=== PATIENT | female | born 1975 | race Caucasian/White ===

== ENCOUNTER 2022-03-18 08:55 | Emergency (ER) | payer OTHER, SELFPAY ==
[2022-03-18 09:07] VITALS: BP 130/63; PULSE 85; RESP 18; TEMP 36.4; O2SAT 98; BMI 26.5
--- NOTE | 2022-03-18 09:17 | CRLHL7_ITS ---
For Patients: As a result of the Century Cures Act, medical imaging exams and procedure reports are released immediately into your electronic medical record. You may view this report before your referring provider. If you have questions, please contact your health care provider. INDICATION: Pain and swelling right upper extremity following foot surgery. Comparison: None. TECHNIQUE: Duplex ultrasound evaluation venous system right upper extremity; color Doppler duplex assessment. FINDINGS: No evidence of deep venous thrombosis involving the right upper extremity deep venous system. The right internal jugular vein, the right subclavian vein, the right axillary vein and the brachial vein are patent and are compressible. Occlusive thrombosis involving the right basilic vein extending from the mid arm into the proximal forearm. Thrombosis involving the right antecubital vein. IMPRESSION: 1. Superficial thrombophlebitis involving the right basilic vein into right antecubital vein. 2. No evidence of deep venous thrombosis. Dictated by Cindy Warner MD @ 03/18/2022 11:06:34 AM (Electronically Signed)
--- NOTE | 2022-03-18 09:28 | ED_ITS ---
HPI - General Adult General Chief complaint: Extremity Pain/Injury, Upper Stated complaint: Post surgical RT Foot now pain in RT arm Time Seen by Provider: 03/18/22 09:12 Source: patient Mode of arrival: ambulatory Limitations: no limitations History of Present Illness HPI narrative: 46-year-old female coming in today complaining of arm pain. Patient states that she had foot surgery on the 06 of March and on the 14 of March started developing right-sided arm pain. The pain is progressively gotten worse over the last several days. She denies any systemic symptoms like fevers chills, nausea or vomiting. She does state that she had an IV placed in that arm. She denies any personal history of blood clots. She is not short of breath, denies palpitations, dizziness or lightheadedness. Appetite has been normal. Foot has been healing appropriately. Related Data Home Medications Medication Instructions Recorded Confirmed norgestimate 0.18 mg/0.215 mg/0.25 tab 03/18/22 mg-ethinyl estradiol 25 mcg tablet ([id number]) sertraline 50 mg tablet mg 03/18/22 Allergies Allergy/AdvReac Type Severity Reaction Status Date / Time No Known Drug Allergies Allergy Verified 03/18/22 09:11 Review of Systems Status of ROS: Reports: 10 or more systems reviewed and unremarkable except as noted in History and below Exam Narrative: Exam Narrative: Well-nourished well-developed patient in no acute distress. Alert and oriented. Answers questions appropriately. Mood and affect are appropriate. Thoughts are goal oriented and rational. No tangential or magical thinking noted. Patient speaks in full sentences without needing to catch her breath. She does not appear ill or toxic. HEENT: Normocephalic atraumatic. Pupils are equally round reactive to light. Extraocular muscles are intact. Conjunctivae are moist without any icterus noted. Cardiovascular: Heart is regular rate and rhythm. Lungs: Clear to auscultation bilaterally. Extremities: Patient has tenderness to palpation of the medial right arm from about the mid upper arm to just distal to the elbow. She has an obvious palpable cord present. There is mild swelling over the medial elbow without heat or significant erythema. Skin: Warm dry and intact. Const: Vital Signs, click to edit/add: Vital Signs - 24 hr 03/18/22 09:07 Temperature 97.6 F Pulse Rate [Right Pulse Oximeter] 85 Respiratory Rate 18 Blood Pressure [Ri t Upper Arm] 130/63 Pulse Oximetry 98 Oxygen Delivery Me thod Room Air Course Course Hospital Course: Likely, because of patient discomfort is a thrombophlebitis however given her recent surgery I did want to make sure that there was no underlying DVT as well. Therefore ultrasound of the upper extremity was ordered. Ultrasound shows thrombophlebitis of the superficial basilic vein, no evidence of DVT. Vital Signs Vital signs: Initial Vital Signs Temperature 97.6 F 03/18/22 09:07 Temperature Source Temporal Artery Scan 03/18/22 09:07 Pulse Rate 85 03/18/22 09:07 Pulse Rhythm 03/18/22 09:07 Respiratory Rate 18 03/18/22 09:07 Blood Pressure 130/63 03/18/22 09:07 Blood Pressure Mean 85 03/18/22 09:07 Blood Pressure Position Sitting 03/18/22 09:07 Pulse Oximetry 98 03/18/22 09:07 Oxygen Delivery Method 03/18/22 09:07 Vital Signs Temperature 97.6 F 03/18/22 09:07 Pulse Rate 85 03/18/22 09:07 Respiratory Rate 18 03/18/22 09:07 Blood Pressure 130/63 03/18/22 09:07 Pulse Oximetry 98 03/18/22 09:07 Oxygen Delivery Method 03/18/22 09:07 Temperature 97.6 F 03/18/22 09:07 Pulse Rate 85 03/18/22 09:07 Respiratory Rate 18 03/18/22 09:07 Blood Pressure 130/63 03/18/22 09:07 Pulse Oximetry 98 03/18/22 09:07 Oxygen Delivery Method 03/18/22 09:07 Medical Decision Making MDM Narrative Medical decision making narrative: 46-year-old female coming in today with thrombophlebitis. We discussed symptomatic treatment with NSAIDs, warm compresses. Discussed reasons for follow-up. She had no other questions. Imaging Data Venous US: Attestation: I have reviewed the pertinent imaging results. Radiologist's impression: TECHNIQUE: Duplex ultrasound evaluation venous system right upper extremity; color Doppler duplex assessment. FINDINGS: No evidence of deep venous thrombosis involving the right upper extremity deep venous system. The right internal jugular vein, the right subclavian vein, the right axillary vein and the brachial vein are patent and are compressible. Occlusive thrombosis involving the right basilic vein extending from the mid arm into the proximal forearm. Thrombosis involving the right antecubital vein. IMPRESSION: 1. Superficial thrombophlebitis involving the right basilic vein into right ant ecubital vein. 2. No evidence of deep venous thrombosis. Discharge Plan Discharge Clinical Impression: Superficial thrombophlebitis Patient Disposition: Home, Self-Care Condition: Stable Additional Instructions: Okay to use ibuprofen 600-800 mg 3 times a day with food. Use warm compress to the painful areas multiple times per day, do not apply heat directly to skin. Follow-up with your primary care provider if you have worsening pain, swelling or redness of the area. Prescriptions: No Action sertraline 50 mg tablet norgestimate-ethinyl estradiol [Yoi-[id number]] 0.18/0.215/0.25 mg-25 mcg tablet Label Comments: TAKE 1 TABLET BY MOUTH EVERY DAY Follow Up/Referrals: Annabel Meeks DO [Primary Care Provider] - Stand Alone Forms: [facility] Info Instructions
[2022-03-18 11:32] VITALS: BP 130/63; PULSE 85; RESP 18; TEMP 36.4
== END 2022-03-18 11:24 | disposition home or self-care (01) ==
PROVIDERS: Emergency Provider Family Medicine; PCP Family Medicine
DX: I82.611 Acute embolism and thrombosis of superficial veins of right upper extremity (principal)
CPT/HCPCS: 93971; 99284

== ENCOUNTER 2022-03-27 21:29 | Emergency (ER) | payer OTHER, SELFPAY ==
[2022-03-27 21:35] VITALS: BP 127/67; PULSE 76; RESP 18; TEMP 36.3
--- NOTE | 2022-03-27 22:20 | ED.GENADULT ---
HPI - General Adult General Chief complaint: Extremity Pain/Injury, Upper Stated complaint: Right arm swelling post surgery Time Seen by Provider: 03/27/22 21:31 History of Present Illness HPI narrative: This 47-year-old female comes in with pain in her right forearm. She had an IV placed for a foot surgery about 9 days ago and developed a clot in this particular vein. She had an ultrasound that showed clot in the superficial vein but none in the deep veins. She comes in today because she has pain more distally now with some erythema in the ulnar aspect of her right forearm near her wrist. She does not report any chest pain or shortness of breath. She is otherwise in good health. She did take an aspirin for about a week but is no longer doing so. Related Data Home Medications Medication Instructions Recorded Confirmed norgestimate 0.18 mg/0.215 mg/0.25 tab 03/18/22 mg-ethinyl estradiol 25 mcg tablet ([id number]) sertraline 50 mg tablet mg 03/18/22 Allergies Allergy/AdvReac Type Severity Reaction Status Date / Time No Known Drug Allergies Allergy Verified 03/27/22 21:34 Review of Systems Status of ROS: Reports: 10 or more systems reviewed and unremarkable except as noted in History and below Narrative: Constitutional: No fevers, no weight gain or loss. Eyes: No discharge. No vision changes. HENT: No congestion, no sore throat, no ear pain. Cardiovascular: No chest pain, no palpitations. Respiratory: No shortness of breath, no wheezes, no cough. Gastrointestinal: No abdominal pain, no vomiting, no diarrhea. Genitourinary: No dysuria, no hematuria. Musculoskeletal: Normal range of motion. Pain in the right forearm as described above. Skin: No rashes, no pruritis. Neurological: No dizziness, weakness, sensory change, speech change. Endo/Heme/Allergies: No bruising or bleeding. No polydipsia. Pysch: no suicidality, no anxiety, no insomnia. All other systems reviewed and are negative. [facility] Social History Smoking Status: Never smoker Do you use any of these nicotine containing products: None Second hand tobacco smoke exposure: No How often do you have a drink containing alcohol: never AUDIT-C Alcohol total score: 0 Non-prescribed substance use: denies use Exam Narrative: Exam Narrative: Constitutional: Well-developed, well-nourished, no acute distress. HEENT: Normocephalic, atraumatic. Neck: Normal range of motion. Nontender. Supple. Heart: Intact distal pulses. Lungs: No chest discomfort. No wheezes, rhonchi, or rales. Abdomen: Nontender. Back: Normal range of motion. Extremities: Normal range of motion. No injury. There is a palpable clot starting at her elbow and extending almost down to her wrist. This is a vein running along the ulnar aspect of her right forearm. She has some increased tenderness with erythema near the right wrist. Skin: Intact. No rash. Warm. An area of erythema approximately 4-5 cm in diameter on the ulnar aspect of her right distal forearm near the wrist. Neurologic: No altered sensation. No weakness. Alert and oriented. Psychiatric: No suicidality. No anxiety or depression. No insomnia. Nursing notes and vitals signs are reviewed. Const: Vital Signs, click to edit/add: Vital Signs - 24 hr 03/27/22 21:35 Temperature 97.4 F L Pulse Rate [Pulse Oximeter] 76 Respiratory Rate 18 Blood Pressure [Le ft Upper Arm] 127/67 Oxygen Delivery Me thod Room Air Course Vital Signs Vital signs: Initial Vital Signs Temperature 97.4 F L 03/27/22 21:35 Temperature Source Temporal Artery Scan 03/27/22 21:35 Pulse Rate 76 03/27/22 21:35 Pulse Rhythm 03/27/22 21:35 Respiratory Rate 18 03/27/22 21:35 Blood Pressure 127/67 03/27/22 21:35 Blood Pressure Mean 87 03/27/22 21:35 Blood Pressure Position Supine 03/27/22 21:35 Oxygen Delivery Method 03/27/22 21:35 Vital Signs Temperature 97.4 F L 03/27/22 21:35 Pulse Rate 76 03/27/22 21:35 Respiratory Rate 18 03/27/22 21:35 Blood Pressure 127/67 03/27/22 21:35 Oxygen Delivery Method 03/27/22 21:35 Temperature 97.4 F L 03/27/22 21:35 Pulse Rate 76 03/27/22 21:35 Respiratory Rate 18 03/27/22 21:35 Blood Pressure 127/67 03/27/22 21:35 Oxygen Delivery Method 03/27/22 21:35 Medical Decision Making MDM Narrative Medical decision making narrative: This patient has a clot in a superficial vein because of an IV placement causing a vascular injury. I did use bedside ultrasound to examine her right upper CT extremity. There is evidence of clot with a vein that is not compressible extending from her elbow joint almost to her wrist. The upper arm does not have any evidence of clot. This is clearly a superficial clot and not involving a deep vein. There is no sign of abscess. There is possibility of infection with erythema near her wrist. I did provide a prescription for Keflex. I recommended that she take an aspirin daily. Discharge Plan Discharge Clinical Impression: Superficial thrombophlebitis Patient Disposition: Home, Self-Care Condition: Stable Additional Instructions: Take medication as prescribed. Follow up with MD for recheck. Return if worsening. Prescriptions: No Action sertraline 50 mg tablet norgestimate-ethinyl estradiol [[id number]] 0.18/0.215/0.25 mg-25 mcg tablet Label Comments: TAKE 1 TABLET BY MOUTH EVERY DAY Follow Up/Referrals: Annabel Meeks DO [Primary Care Provider] - Stand Alone Forms: [facility] Info Instructions
[2022-03-27 22:38] VITALS: BP 113/50; PULSE 69
== END 2022-03-27 22:39 | disposition home or self-care (01) ==
LOC: ED 22:31
PROVIDERS: Emergency Provider Emergency Medicine Emergency Medical Services; PCP Family Medicine
DX: T81.72XA Complication of vein following a procedure, not elsewhere classified, initial encounter (principal); I80.8 Phlebitis and thrombophlebitis of other sites
CPT/HCPCS: 99283; 99284

== ENCOUNTER 2022-07-26 08:45 | Outpatient (RCR) | payer OTHER, SELFPAY | END 2022-11-23 23:59 | disposition home or self-care (01) | PROVIDERS: PCP Family Medicine; Visit Provider Podiatrist | DX: Z98.890 Other specified postprocedural states (principal); Z51.89 Encounter for other specified aftercare | CPT/HCPCS: 97110; 97140; 97162 ==

== ENCOUNTER 2024-06-28 18:19 | Emergency (ER) | payer BC, SELFPAY ==
--- OUTSIDE RECORDS SUMMARY | 2024-06-28 18:22 | XMS_ITS | Clinical Summary ---
Author Organization [facility] Address [address] [place] [id number] Care Team Providers Care Stopboard Assembler Name Role Phone Annabel Meeks DO Primary Care Provider Allergies Active Allergy Reactions Criticality Noted Date Comments Adhesive Tape-Silicones Rash,Erythema 8 Medications cetirizine (ZYRTEC) 10 mg tablet Take 1 tablet by mouth once daily. 0 8 Active fluticasone (50 mcg per actuation) nasal solution (FLONASE)Indicati ons:Seasonal allergic rhinitis due to pollen Inhale 2 Sprays into both nostrils once daily. 3 Bottle 5 8 Active durable medical equipment (DME)Indications: Bunion of right foot,Follow-up examination after orthopedic surgery 01ES-M ihsan Gutiérrez, Medium 1 Each 1 Active durable medical equipment (DME)Indications: S/P foot surgery, right PLANTAR FASCIITIS NIGHT SPLINT, MEDIUM, REF: [phone] 1 Each 3 Active durable medical equipment (DME)Indications: S/P foot surgery, right SQUARED TOE POST OP SHOE, MEDIUM, REF: [phone] 1 Each 3 Active norethin kimo-eth estrad-fe, 1.5-30 mg-mcg, (LOESTRIN FE 1.5/30) 1.5 mg-30 mcg (21)/75 mg (7) tabletIndications :Uses contraception Take 1 Tablet by mouth once daily. 90 Tablet 3 5 Active Phentermine HCl 30 mg capsuleIndication s:Obesity (BMI 30-39.9) Take 1 Capsule (30 mg) by mouth once daily before a meal. 30 Capsule 5 Active sertraline 50 mg tabletIndications :Anxiety and depression Take 1 Tablet (50 mg) by mouth once daily in the morning. 90 Tablet 2 5 Active sertraline (ZOLOFT) 50 mg tabletIndications :Anxiety and depression Take 1 Tablet (50 mg) by mouth once daily in the morning. 90 Tablet 3 5 025 Discontin ued(*Avai lability/ Formulary change/Co st of medicatio n) phentermine (IONAMIN) 15 mg capsuleIndication s:Weight gain,Obesity (BMI 30-39.9) Take 1 Capsule (15 mg) by mouth once daily before a meal. 15 Capsule 5 025 Discontin ued(*Med complete/ Regimen complete/ Level of care change) Phentermine HCl 30 mg capsuleIndication s:Obesity (BMI 30-39.9) Take 1 Capsule (30 mg) by mouth once daily before a meal. 30 Capsule 5 025 Discontin ued(Reord er (E-cancel not sent)) Active Problems Problem Noted Date Diagnosed Date Basal cell carcinoma (BCC) in situ of skin 05/09 Overview (05/09/2017): biopsy 05/04/17 positive. Other biopsy outside clinic. Notes in chart. Uses contraception 11/28/2016 Hammertoe of right foot Metatarsalgia, right foot Valgus deformity of great toe, right Gastrocnemius equinus, right Encounters Date Type Department Care Team Description 06/15/2024 Refill [facility] [address] [place] [address] Annabel Meeks, Refill Request (Sertraline) 06/04/2024 8:10 AM CDT Office Visit [facility] [address] [place] [address] Annabel Meeks DO Follow Up (medication changes- control and phentermine) 06/04/2024 Travel 04/26/2024 Refill [facility] [address] [place] [address] Annabel Meeks DO Refill Request (Estarylla) 04/23/2024 7:45 AM RN PERIOPERATIVE Office Visit [facility] [address] [place] [address] Annabel Meeks DO Physical (49 yr); Weight; hormone (yao, doesn't sleep well, very heavy periods- has been shorter but heavier, hot flashes) 04/23/2024 Travel 04/14/2024 Refill [facility] [address] [place] [address] Annabel Meeks DO Refill Request (Sertraline) from Last 3 Months Immunizations Immunization Administration Dates Next Due AMB Influenza, IIV4 PF (=>6 mos Flulaval,Fluzone Fluarix)(Flu Clinic Only) 12/17/2017 HepA-HepB (Twinrix) 06/02/2019,03/24/20192019 Influenza Virus, Unspecified 03/25/2024 Influenza, CCIIV3 (Age >=6 MO) (Egg Free) 2024 Influenza, IIV3 (Age >=3 years) 01/24/2001 Influenza, IIV4 11/05/2020,12/01/2019,03/24/2019 Influenza, IIV4 (=>6mos) MDV 11/28/2021 Influenza,CCIIV4 PRESERV FREE 01/05/2023, 020 Tdap 03/24/2019 Family History Medical History Relation Name Comments Basal cell carcinoma Brother Alcoholism Father Dementia Maternal Grandmother Melanoma Maternal Uncle Basal cell carcinoma Mother Osteoporosis Mother Cancer-breast No Family History Cancer-ovarian No Family History Relation Name Status Comments Brother Father Maternal Grandmother Maternal Uncle Mother Social History Tobacco Use Types Packs/Day Years Used Date Smoking Tobacco: Never Smokeless Tobacco: Never Tobacco Cessation:Counseling Given: Yes Alcohol Use Standard Drinks/Week Comments Not Currently 0 (1 standard drink = 0.6 oz pur e alcohol) occassionally PHQ-2 Answer Date Recorded PHQ-2 TOTAL SCORE 0 06/04/2024 Social Connections Answer Date Recorded Do you often feel lonely or isolated from those around you? 0 04/23/2024 Financial Resource Strain Answer Date R ecorded Difficulty of Paying Living Expenses 3 04/23/2024 Difficulty of Paying Living Expenses Not on file 04/23/2024 Food Insecurity Answer Date Recorded Do you worry your food will run out before you are able to buy more? 1 04/23/2024 Transportation Needs Answer Date Record ed Does lack of transportation keep you from medica l appointments? 1 04/23/2024 Does lack of transportation keep you from work, meetings or getting things that you need? 1 04/23/2024 Housing Stability Answer Date Recorded What is your housing situation today? 1 04/23/2024 Utilities Answer Date Recorded Do you have trouble paying f or utilities (for example, heat, electricity, water, phone)? 1 04/23/2024 Comments No Sex and Gender Information Value Date Recorded Sex Assigned at Not on file Legal Sex Female 6:11 AM RN PERIOPERATIVE Gender Identity Not on file Sexual Orientation Not on file Occupation Industry Job Start Date Job End Date rare pair Not on file Not on file Not on file Obstetrics History Last Filed Vital Signs Vital Sign Reading Time Taken Comments Blood Pressure 114/76 06/04/2024 8:17 AM CDT Pulse 69 06/04/2024 8:17 AM CDT Temperature 36.7 C (98.1 F) 04/23/2024 7:53 AM RN PERIOPERATIVE Respiratory Rate 16 03/06/2022 3:30 PM RN PERIOPERATIVE Oxygen Saturation 98% 06/04/2024 8:17 AM CDT Inhaled Oxygen Concentration - - Weight 99.3 kg (219 lb) 06/04/2024 8:17 AM CDT Height 181.6 cm (5' 11.5) 04/23/2024 7:53 AM CS T Body Mass Index 30.12 04/23/2024 7:53 AM RN PERIOPERATIVE Plan of Treatment Health Maintenance Due Date Last Done Comments Mammogram for age 45-75 08/14/2024 08/15/19 24, 05/29/2022, 05/23/2021, Additional history exists BMI (ht and wt on same day) for age 18+ 04/23/2025 04/23/2024, 09/15/2022, 08/01/2021, Additional history exists Pap test for age 21-65 05/03/2025 , 05/03/2020, 11/16/2014 ([facility]) Depression screening for age 12+ 06/04/2025 06/04/2024, 04/23/2024, 09/15/2022, Additional history exists Tetanus booster 03/24/2029 03/24/2019 Lipids for age 45-75 04/23/2029 04/23/2024, 08/15/2021, 05/07/2017 Colonoscopy through age 75 11/23/203111/22, 11/22/2021, 11/22/2021 Tdap Completed 03/24/2019 Hepatitis C screening for age 18-79 Completed 08/15/2021 COVID-19 vaccine series Completed 03/25/19, 01/05/2023, 11/28/2021, Additional history exists Influenza Vaccine Completed 03/25/2024, , 01/05/2023, Additional history exists HIV for age 15-65 Completed 04/23/2024 Pneumococcal series for age 6-49 Aged Out No longer eligible based on patient's age to complete this topic Medical Devices Implanted Type Area Glass Curvature Gauger Device Identifier Shelf Expiration Date Model / Serial / Lot Berenice 2.5 X 12mm Screw Implanted:Qty: 1 on 11/08/2020 by Gurjit Simpson DPM at [facility] Right: Foot [employer] 10/15/2028 [id number] / / [id number] Stendal 2.5 X 14mm Screw Implanted:Qty: 1 on 11/08/2020 by Gurjit Simpson DPM at [facility] Right: Foot [employer] 09/27/2028 [id number] / / [id number] Stendal Locking Screw Implanted:Qty: 1 on 11/08/2020 by Gurjit Simpson DPM at [facility] Right: Foot [employer] 09/27/2028 [id number] / / [id number] - [id number], Stendal Locking Screw Implanted:Qty: 1 on 11/08/2020 by Gurjit Simpson DPM at [facility] Right: Foot 09/27/2028 [id number] / / [id number] - [id number], Berenice Locking Screw Implanted:Qty: 1 on 11/08/2020 by Gurjit Simpson DPM at [facility] Right: Foot [employer] 09/27/2028 [id number] / / [id number] - [id number], Berenice Locking Screw Implanted:Qty: 1 on 11/08/2020 by Gurjit Simpson DPM at [facility] Right: Foot [employer] 09/27/2028 [id number] / / [id number] - [id number], Berenice Lag Screw Implanted:Qty: 1 on 11/08/2020 by Gurjit Simpson DPM at [facility] Right: Foot [employer] 09/27/2028 [id number] / / [id number] - [id number], Berenice Standard Lapidus Plate Left Implanted:Qty: 1 on 11/08/2020 by Gurjit Simpson DPM at [facility] Right: Foot [employer] 09/27/2028 [id number] / / [id number] - [id number], Berenice Temp Fixation Pin 1.1mm Small Implanted:Qty: 1 on 11/08/2020 by Gurjit Simpson DPM at [facility] Right: Foot [employer] [id number] / / Quick Fix Snapoff Screw Implanted:Qty: 1 on 03/06/2022 by Gurjit Simpson DPM at [facility] Right: Toe AR-8931-13 / / [id number] Quick Fix Snapoff Screw Implanted:Qty: 1 on 03/06/2022 by Gurjit Simpson DPM at [facility] Right: Toe AR-8930-12 / / [id number] Quick Fix Snapoff Screw Implanted:Qty: 1 on 03/06/2022 by Gurjit Simpson DPM at [facility] Right: Toe AR-8930-11 / / [id number] Dynanite Pip Implant, Straight, 16 Mm W/ Instrumentation Implanted:Qty: 1 on 03/06/2022 by Gurjit Simpson DPM at [facility] Right: Foot 05/26/2024 / [id number]-1 6S / [id number] Dynanite Pip Implant, Straight, 16 Mm W/ Instrumentation Implanted:Qty: 1 on 03/06/2022 by Gurjit Simpson DPM at [facility] Right: Foot 08/25/2024 / AR-[id number]-1 6S / [id number] Dynanite Pip Implant, Straight, 14mm With Instrumentation Implanted:Qty: 1 on 03/06/2022 by Gurjit Simpson DPM at [facility] Right: Foot [employer] 12/26/2026 AR-4158DS-1 4S / / [id number] Dynanite Nitinol With Instrumentation, 9w X 10l Implanted:Qty: 1 on 03/06/2022 by Gurjit Simpson DPM at [facility] Right: Foot [employer] 11/25/2026 AR-8717DS-0 910 / / [id number] Procedures Procedure Name Priority Date/Time Associated Diagnosis Comments ANTI HIV 1/2 Routine 04/23/2024 8:52 AM RN PERIOPERATIVE Screening for HIV (human immunodeficiency virus) LIPID PANEL W REFLEX MEASURED LDL Routine 04/23/2024 8:52 AM RN PERIOPERATIVE Lipid screening BASIC METABOLIC PANEL Routine 04/23/2024 8:52 AM RN PERIOPERATIVE Diabetes mellitus screening TSH WITH REFLEX Routine 04/23/2024 8:52 AM RN PERIOPERATIVE Weight gain XR MAMMO JOSE BILAT SCREEN Routine 08/15/2023 9:55 AM CDT Visit for screening mammogram COLONOSCOPY SCREENING Routine 11/22/2021 9:29 AM CDT Screening for colon cancer ANTI HCV Routine 08/15/2021 8:52 AM CDT Need for hepatitis C screening test CANDY STARCH MOLD PRINTER THIN PREP PAP SCREEN IMAGED Routine 05/03/2020 9:44 AM RN PERIOPERATIVE Screening for malignant neoplasm of cervix from Last 3 Months or Most Recently Relevant to Health Maintenance Results * TSH WITH REFLEX (04/23/2024 8:52 AM RN PERIOPERATIVE) TSH W/REFLEX TO FT4 1.59 mIU/L [facility] Comment: Reference Range > or = 20 Years 0.40-4.50 Ranges First trimester 0.26-2.66 Second trimester 0.55-2.73 Third trimester 0.43-2.91 Blood BLOOD SPECIMEN / Unknown 04/23/2024 8:52 AM RN PERIOPERATIVE 04/23/2024 8:53 AM RN PERIOPERATIVE us Annabel Peñat DO CHEMISTRY Final Resul t [facility] [email or web address] [facility] [address] [place] [address], [email or web address] [address] [place] [address] * (ABNORMAL) LIPID PANEL W REFLEX MEASURED LDL (04/23/2024 8:52 AM RN PERIOPERATIVE) CHOLESTEROL, TOTAL 236(H) <200 mg/dL [facility] HDL CHOLESTEROL 104 > OR = 50 mg/dL [facility] TRIGLYCERIDES 130 <150 mg/dL [facility] LDL-CHOLESTEROL 107(H) mg/dL (calc) [facility] Comment: Reference range: <100 Desirable range <100 mg/dL for primary prevention; <70 mg/dL for patients with CHD or diabetic patients with > or = 2 CHD risk factors. LDL-C is now calculated using the Sandra calculation, which is a validated novel method providing better accuracy than the Friedewald equation in the estimation of LDL-C. Sean RDZ et al. TRAVIS. 2013;310(19): 4663-6010 (http://BA Insight/faq/YOA408) CHOL/HDLC RATIO 2.3 <5.0 (calc) [facility] NON HDL CHOLESTEROL 132(H) <130 mg/dL (calc) [facility] Comment: For patients with diabetes plus 1 major ASCVD risk factor, treating to a non-HDL-C goal of <100 mg/dL (LDL-C of <70 mg/dL) is considered a therapeutic option. Blood BLOOD SPECIMEN / Unknown 04/23/2024 8:52 AM RN PERIOPERATIVE 04/23/2024 8:53 AM RN PERIOPERATIVE Annabel Meeks DO CHEMISTRY Final Resul t [employer] [facility] [address] [place] [address], [facility] [address] [place] [address] * ANTI HIV 1/2 [57089.0] (04/23/2024 8:52 AM RN PERIOPERATIVE) HIV AG/AB, 4TH GEN NON-REACT MICHAEL NON-REACT MICHAEL [facility] [place] Comment: HIV-1 antigen and HIV-1/HIV-2 antibodies were not detected. There is no laboratory evidence of HIV infection. PLEASE NOTE: This information has been disclosed to you from records whose confidentiality may be protected by state law. If your state requires such protection, then the state law prohibits you from making any further disclosure of the information without the specific written consent of the person to whom it pertains, or as otherwise permitted by law. A general authorization for the release of medical or other information is NOT sufficient for this purpose. For additional information please refer to http://education.[employer]/faq/SMF432 (This link is being provided for informational/ educational purposes only.) The performance of this assay has not been clinically validated in patients less than 2 years old. Blood BLOOD SPECIMEN / Unknown 04/23/2024 8:52 AM RN PERIOPERATIVE 04/23/2024 8:53 AM RN PERIOPERATIVE Annabel Meeks DO SEND OUTS Final Resul t [employer] [facility] [address] [place] [address], [facility] [address] [place] [address] * (ABNORMAL) BASIC METABOLIC PANEL (04/23/2024 8:52 AM RN PERIOPERATIVE) Pathologist [facility] GLUCOSE 100(H) 65 - 99 mg/dL [facility] Comment: Fasting reference interval For someone without known diabetes, a glucose value between 100 and 125 mg/dL is consistent with prediabetes and should be confirmed with a follow-up test. UREA NITROGEN (BUN) 9 7 - 25 mg/dL [facility] CREATININE 0.74 0.50 - 0.99 mg/dL [facility] EGFR 100 > OR = 60 mL/min/1. 73m2 [facility] BUN/CREATININE RATIO SEE NOTE: 6 - 22 (calc) [facility] Comment: Not Reported: BUN and Creatinine are within reference range. SODIUM 139 135 - 146 mmol/L [facility] POTASSIUM 4.4 3.5 - 5.3 mmol/L [facility] CHLORIDE 104 98 - 110 mmol/L [facility] CARBON DIOXIDE 26 20 - 32 mmol/L [facility] ELECTROLYTE BALANCE 9 7 - 17 mmol/L (calc) [facility] CALCIUM 9.4 8.6 - 10.2 mg/dL [facility] Blood BLOOD SPECIMEN / Unknown 04/23/2024 8:52 AM RN PERIOPERATIVE 04/23/2024 8:53 AM RN PERIOPERATIVE Annabel Aly Detert DO CHEMISTRY Final Resul t [employer] [facility] [address] [place] [address], [place] [phone] [facility] [address] [place] [address] * XR MAMMO JOSE BILAT SCREEN (08/15/2023 9:55 AM CDT) Anatomical Region Laterality Modality BREASTS, Breast Left, Breast Right Bilateral Mammography Impressions 08/15/2023 3:52 PM CDT There is no radiographic evidence for malignancy. Recommend annual mammograms. MAMMOGRAM ASSESSMENT: ACR 1 Negative PATIENTS: You will also receive a letter with your examination results in an easy to read format. If you have questions about your results, please contact your referring provider. Narrative 08/15/2023 3:52 PM CDT For Patients: As a result of the Century Cures Act, medical imaging exams and procedure reports are released immediately into your electronic medical record. You may view this report before your referring provider. If you have questions, please contact your health care provider. XR MAMMO JOSE BILAT SCREEN [[id number]] CLINICAL HISTORY: This is an asymptomatic 48 y.o. patient. INDICATION FOR EXAM: Mammogram Screening. TECHNIQUE: CC & MLO views were obtained. This study was evaluated with the assistance of Computer-Aided Detection. Breast Tomosynthesis was used in interpretation. COMPARISON FILM: Yes 05/29/22 [facility] 05/23/21 [facility] FINDINGS: The breasts are heterogeneously dense, which may obscure small masses. There are no dominant masses, suspicious micro calcifications or areas of architectural distortion. Annabel Aly Detert DO MAMMO Final Resul t * COLONOSCOPY (11/22/2021 7:32 AM CDT) 11/22/2021 7:32 AM CDT Narrative Transcriptions Sean Guzman MD - 11/22/2021 10:41 AM CDT Patient Name: Tara Renee Procedure Date: 11/22/2021 Gender: Female Date of : 1975 Admit Type: Outpatient Procedure: Colonoscopy Proceduralist: Sean Guzman MD , Karie Kim (Nurse), Cheyenne Esteves (Nurse) Referring MD: Annabel Meeks Indications/Pre-Op Diagnosis: Screening for colorectal malignant neoplasm, This is the patient's first colonoscopy Medications: Fentanyl 100 micrograms IV, Midazolam 4 mgIV, The level of sedation administered wasmoderate Procedure Description: The patient had risks, benefits and alternatives explained to andgave informed consent. The patient had a stable cardiopulmonary status and judged an adequate candidate for conscious sedation. The colonoscope was passed through the anus and advanced to thececum, identified by appendiceal orifice and ileocecal valve. Thecolonoscopy was performed without difficulty. The patient tolerated the procedure well. The quality of the bowel preparation was good. The ileocecal valve, appendiceal orifice, and rectum were photographed. Complications: No immediate complications. Estimated Blood Loss & Specimen: Estimated blood loss: none. Specimen collected - None Findings: The perianal and digital rectal examinations were normal. The entire examined colon appeared normal. Impressions/Post-Op Diagnosis: - The entire examined colon is normal. - No specimens collected. Recommendation: - Patient has a contact number available for emergencies. The signsand symptoms of potential delayed complications were discussed with the patient. Return to normal activities tomorrow. Written discharge instructions were provided to the patient. - Resume previous diet. - Continue present medications. - Repeat colonoscopy in 10 years for screening purposes. Moderate Sedation: A time out was performed before the procedure. Moderate (conscious) sedation was administered by the endoscopy nurse and supervised bythe endoscopist. The following parameters were monitored: oxygensaturation, heart rate, blood pressure, EKG, CO2, respiratory rate, adequacy of pulmonary ventilation and reponse to care. Please refer to the patient's medical record flowsheets and nursing notes for moderate sedation details. Total physician intraservice time was 19 minutes. Sean Guzman MD 11/22/2021 10:41:08 AM This report has been signed electronically. Note Initiated On: 11/22/2021 7:32 AM Procedure Code(s): --- Professional --- 56807, Colonoscopy, flexible; diagnostic, including collection of specimen(s) bybrushing or washing, when performed (separateprocedure) Diagnosis Code(s): --- Professional --- Z12.11, Encounter for screening formalignant neoplasm of colon CPT copyright 2020 [employer] [place] [employer]. All rights reserved. The codes documented in this report are preliminary and upon power manager reviewmay be revised to meet current compliance requirements. Scope In: 10:05:26 AM Scope Withdrawal Time 0 hours 7 minutes 2 seconds Scope Out: 10:21:49 AM Sean Guzman MD PROCEDURE ORD Final Res ult * ANTI HCV (08/15/2021 8:52 AM CDT) HEPATITIS C ANTIBODY Non-React michael Non-React michael 08/15/2021 5:59 PM CDT [facility] Comment:Antibodies to HCV no t detected; does not exclude the possibility of exposure to HCV. Blood BLOOD SPECIMEN / Unknown Venipuncture / Unknown 08/15/2021 8:52 AM CDT 08/15/2021 8:56 AM CDT Annabel Meeks DO SEND OUTS Final Resul t [facility] [address] [place] [address], [place] * CANDY STARCH MOLD PRINTER THIN PREP PAP SCREEN IMAGED [[id number]] (05/03/2020 9:44 AM RN PERIOPERATIVE) Case Report Gynecologic Cytology Report Case: [id number] Authorizing Provider: Annabel Meeks DO Collected: 05/03/2020 0944 Ordering Location: [facility] Received: 05/03/2020 [facility] First Screen: Elicia Crum Specimen: CANDY STARCH MOLD PRINTER ThinPrep Vial Screening, Cervical 05/12/2020 8:24 AM CDT [facility] INTERPRETATION/ RESULT NEGATIVE FOR INTRAEPITHELIAL LESION OR MALIGNANCY (NIL) (none) 05/12/2020 8:24 AM CDT [facility] at 0823 CDT SPECIMEN ADEQUACY Satisfactory for evaluation Endocervical component present 05/12/2020 8:24 AM CDT [facility] HPV REQUEST HPV and PAP 05/12/2020 8:24 AM CDT [facility] Date of LMP 04/28/20 05/12/2020 8:24 AM CDT [facility] Last Pap Date 201405/12/2020 8:24 AM CDT [facility] Last Pap Result NIL 8:24 AM CDT [facility] Abnormal Pap or Charlotte Bx in last 5 years No 05/12/2020 8:24 AM CDT [facility] Menstrual Status Regular Periods 05/12/2020 8:24 AM CDT [facility] [place] Bx Done Today No 05/12/2020 8:24 AM CDT [facility] Additional Information None given 05/12/2020 8:24 AM CDT [facility] Comment: [facility] - [address], [place] [address] and [facility] - [address] [place] [address], [place] [address] and [facility] - [address], [place] [address] Interpreted at [facility] - [facility] [place] [address] Automated Review Successful 05/12/2020 8:24 AM CDT [facility] Comment:Specimen processed s uccessfully by automated director institution device, [employer] Imaging System, [employer] ANCILLARY TESTING CANDY STARCH MOLD PRINTER HPV Ordered, Please see separate report 05/12/2020 8:24 AM CDT [facility] Note The pap test is a screening technique, not a diagnostic procedure. It is used primarily to screen for squamous cancers and precursor lesions. Published studies have shown that it is subject to both false negative and false positive results. The pap test should not be used as the sole means to diagnose or exclude pre-malignant and malignant lesions. 05/12/2020 8:24 AM CDT [facility] Other (Cervical) Non-Blood / Unknown 05/03/2020 9:44 AM RN PERIOPERATIVE 05/03/2020 10:24 AM RN PERIOPERATIVE Annabel Meeks DO PATHOLOGY/CYTOLOGY Final Re sult [facility] [address] [place] [address], [place] from Last 3 Months or Most Recently Relevant to Health Maintenance Insurance Julia [facility] [place] [address] [facility] Advance Directives * Full Code (Latest Code Status on File) Date Activated Date Inactivated Comments 03/06/2022 8:42 AM 03/06/2022 5:57 PM Question Answer Comments Code Status Discussion: Reviewed Preferences * Full Code Date Activated Date Inactivated Comments 11/08/2020 9:03 AM 11/08/2020 6:49 PM Question Answer Comments Code Status Discussion: Discussed Care Teams Stopboard Assembler Relationship Specialty Start Date End Date [place] [address] [address] PCP - General Family Practice 11/07/16
[2024-06-28 18:35] VITALS: BP 143/87; PULSE 84; RESP 18; TEMP 36.9; O2SAT 98; BMI 28.9
--- NOTE | 2024-06-28 18:45 | CRLHL7_ITS ---
For Patients: As a result of the Cures Act, medical imaging exams and procedure reports are released immediately into your electronic medical record. You may view this report before your referring provider. If you have questions, please contact your health care provider. INDICATION: Toe Injury TECHNIQUE: Toe radiograph 3 views right COMPARISON: None FINDINGS: Bone: Previous distal 1st bunionectomy is noted. Cortical thickening and patchy sclerosis is partially visualized in the distal 5th metatarsal which may be due to remote injury or infection. There are metallic pins present in the 2nd through 4th metatarsal heads. A metallic staple is present in the 1st proximal phalanx. Evaluation of the digits on the lateral examination is moderately degraded due to overlapped digit positioning. Joint: Arthrodesis of the 2nd-4th proximal interphalangeal joints are noted with threaded metallic pins. Soft tissue: Unremarkable. No radiopaque foreign bodies are seen. IMPRESSION: 1. No acute osseous injuries or abnormalities are noted. Dictated by Oscar Voss MD @ 06/28/2024 7:30:51 PM Dictated by: Oscar Voss MD @ 06/28/2024 19:30:56 (Electronically Signed)
--- OUTSIDE RECORDS SUMMARY | 2024-06-28 18:55 | XMS_ITS | Clinical Summary ---
Author Organization [employer] [facility] Address [address] [place] [id number] Care Team Providers Care Ship Boss Name Role Phone Annabel Meeks DO Primary [...] right PLANTAR FASCIITIS NIGHT SPLINT, MEDIUM, REF: [phone] 1 Each 3 Active durable medical equipment (DME)Indications: S/P foot surgery, right SQUARED TOE POST OP SHOE, MEDIUM, REF: [phone] 1 Each 3 Active norethin kimo-eth estrad-fe, [...] Type Department Care Team Description 06/15/2024 Refill [facility] [address] [place] [address] Annabel Meeks, Refill Request (Sertraline) 06/04/2024 8:10 AM CDT Office Visit [facility] [address] [place] [address] Annabel Meeks DO Follow Up (medication changes- control and phentermine) 06/04/2024 Travel 04/26/2024 Refill [facility] [address] [place] [address] Annabel Meeks DO Refill Request (Estarylla) 04/23/2024 7:45 AM STOCK CONTROL CLERK Office Visit [facility] [address] [place] [address] Annabel Meeks DO Physical (49 yr); Weight; hormone (yao, doesn't sleep well, very heavy periods- has been shorter but heavier, hot flashes) 04/23/2024 Travel 04/14/2024 Refill [facility] [address] [place] [address] Annabel Meeks DO Refill Request (Sertraline) from [...] on file Legal Sex Female 6:11 AM STOCK CONTROL CLERK Gender Identity Not on file Sexual Orientation Not on file Occupation Industry Job Start Date Job End Date rare pair Not on file Not on file Not on file Obstetrics History Last Filed Vital Signs Vital Sign Reading Time Taken Comments Blood Pressure 114/76 06/04/2024 8:17 AM CDT Pulse 69 06/04/2024 8:17 AM CDT Temperature 36.7 C (98.1 F) 04/23/2024 7:53 AM STOCK CONTROL CLERK Respiratory Rate 16 03/06/2022 3:30 PM STOCK CONTROL CLERK Oxygen Saturation 98% 06/04/2024 8:17 AM CDT Inhaled Oxygen Concentration - - Weight 99.3 kg (219 lb) 06/04/2024 8:17 AM CDT Height 181.6 cm (5' 11.5) 04/23/2024 7:53 AM CS T Body Mass Index 30.12 04/23/2024 7:53 AM STOCK CONTROL CLERK Plan of Treatment Health Maintenance Due Date Last Done Comments Mammogram for age 45-75 08/14/2024 08/15/19 24, 05/29/2022, 05/23/2021, Additional history exists BMI (ht and wt on same day) for age 18+ 04/23/2025 04/23/2024, 09/15/2022, 08/01/2021, Additional history exists Pap test for age 21-65 05/03/2025 , 05/03/2020, 11/16/2014 [facility]) Depression screening for age 12+ 06/04/2025 [...] this topic Medical Devices Implanted Type Area Director Of Distribution Device Identifier Shelf Expiration Date Model / Serial / Lot Berenice 2.5 X 12mm Screw Implanted:Qty: 1 on 11/08/2020 by Gurjit Simpson DPM at [facility] Right: Foot [employer] 10/15/2028 [id number] / / [id number] [employer] 2.5 X 14mm Screw Implanted:Qty: 1 on 11/08/2020 by Gurjit Simpson DPM at [facility] Right: Foot [employer] 09/27/2028 [id number] / / [id number] [employer] Locking Screw Implanted:Qty: 1 on 11/08/2020 by Gurjit Simpson DPM at [facility] Right: Foot [employer] 09/27/2028 [id number] / / [id number] - [id number], [employer] Locking Screw Implanted:Qty: 1 on 11/08/2020 by Gurjit Simpson DPM at [facility] Right: Foot 09/27/2028 [id number] / / [id number] - [id number], Berenice Locking Screw Implanted:Qty: 1 on 11/08/2020 by Gurjit Simpson DPM at [facility] Right: Foot [employer] 09/27/2028 [id number] / / [id number] - [id number], Berenice Locking Screw Implanted:Qty: 1 on 11/08/2020 by Gurjit Simpson DPM at [facility] Right: Foot [employer] 09/27/2028 [id number] / / [id number] - [id number], Berenice Lag Screw Implanted:Qty: 1 on 11/08/2020 by Gurjit Simpson DPM at [facility] Right: Foot [employer] 09/27/2028 [id number] / / [id number] - [id number], Berenice Standard Lapidus Plate Left Implanted:Qty: 1 on 11/08/2020 by Gurjit Simpson DPM at [facility] Right: Foot [employer] 09/27/2028 [id number] / / [id number] - [id number], Berenice Temp Fixation Pin 1.1mm Small Implanted:Qty: 1 on 11/08/2020 by Gurjit Simpson DPM at [facility] Right: Foot [employer] [id number] / / Quick Fix Snapoff Screw Implanted:Qty: 1 on 03/06/2022 by Gurjit Simpson DPM at [facility] Right: Toe AR-8931-13 / / [id number] Quick Fix Snapoff Screw Implanted:Qty: 1 on 03/06/2022 by Gurjit Simpson DPM at [facility] Right: Toe AR-8930-12 / / [id number] Quick Fix Snapoff Screw Implanted:Qty: 1 on 03/06/2022 by Gurjit Simpson DPM at [facility] Right: Toe AR-8930-11 / / [id number] Dynanite Pip Implant, Straight, 16 Mm W/ Instrumentation Implanted:Qty: 1 on 03/06/2022 by Gurjit Simpson DPM at [facility] Right: Foot 05/26/2024 / AR-[id number]-1 6S / [id number] Dynanite Pip Implant, Straight, 16 Mm W/ Instrumentation Implanted:Qty: 1 on 03/06/2022 by Gurjit Simpson DPM at [facility] Right: Foot 08/25/2024 / AR-4158DS-1 6S / [id number] Dynanite Pip Implant, Straight, 14mm With Instrumentation Implanted:Qty: 1 on 03/06/2022 by Gurjit Simpson DPM at [facility] Right: Foot [employer] 12/26/2026 AR-4158DS-1 4S / / [id number] Dynanite Nitinol With Instrumentation, 9w X 10l Implanted:Qty: 1 on 03/06/2022 by Gurjit Simpson DPM at [facility] Right: Foot [employer] 11/25/2026 AR-8717DS-0 910 / / [id number] Procedures Procedure Name Priority Date/Time Associated Diagnosis Comments ANTI HIV 1/2 Routine 04/23/2024 8:52 AM STOCK CONTROL CLERK Screening for HIV (human immunodeficiency virus) LIPID PANEL W REFLEX MEASURED LDL Routine 04/23/2024 8:52 AM STOCK CONTROL CLERK Lipid screening BASIC METABOLIC PANEL Routine 04/23/2024 8:52 AM STOCK CONTROL CLERK Diabetes mellitus screening TSH WITH REFLEX Routine 04/23/2024 8:52 AM STOCK CONTROL CLERK Weight gain XR MAMMO JOSE BILAT SCREEN Routine 08/15/2023 9:55 AM CDT Visit for screening mammogram COLONOSCOPY SCREENING Routine 11/22/2021 9:29 AM CDT Screening for colon cancer ANTI HCV Routine 08/15/2021 8:52 AM CDT Need for hepatitis C screening test FOOT ROENTGENOLOGIST THIN PREP PAP SCREEN IMAGED Routine 05/03/2020 9:44 AM STOCK CONTROL CLERK Screening for malignant neoplasm of cervix from Last 3 Months or Most Recently Relevant to Health Maintenance Results * TSH WITH REFLEX (04/23/2024 8:52 AM STOCK CONTROL CLERK) TSH W/REFLEX TO FT4 1.59 mIU/L [facility] Comment: Reference Range > or = 20 Years 0.40-4.50 Ranges First trimester 0.26-2.66 Second trimester 0.55-2.73 Third trimester 0.43-2.91 Blood BLOOD SPECIMEN / Unknown 04/23/2024 8:52 AM STOCK CONTROL CLERK 04/23/2024 8:53 AM STOCK CONTROL CLERK us Annabel Peñat DO CHEMISTRY Final Resul t [facility] [employer] [facility] [address] [place] [address], [facility] [address] [place] [address] * (ABNORMAL) LIPID PANEL W REFLEX MEASURED LDL (04/23/2024 8:52 AM STOCK CONTROL CLERK) CHOLESTEROL, TOTAL 236(H) <200 mg/dL [facility] [...] LDL-C. Sean RDZ et al. TRAVIS. 2013;310(19): 8055-4849 (http://Icera/faq/PJY369) CHOL/HDLC RATIO 2.3 <5.0 (calc) [facility] NON HDL CHOLESTEROL 132(H) <130 mg/dL (calc) [facility] Comment: For patients with diabetes plus 1 major ASCVD risk factor, treating to a non-HDL-C goal of <100 mg/dL (LDL-C of <70 mg/dL) is considered a therapeutic option. Blood BLOOD SPECIMEN / Unknown 04/23/2024 8:52 AM STOCK CONTROL CLERK 04/23/2024 8:53 AM STOCK CONTROL CLERK Annabel Meeks DO CHEMISTRY Final Resul t [facility] [address] [place] [address], [facility] [address] [place] [address] * ANTI HIV 1/2 [70916.0] (04/23/2024 8:52 AM STOCK CONTROL CLERK) HIV AG/AB, 4TH GEN NON-REACT MICHAEL NON-REACT MICHAEL [facility] [place] Comment: HIV-1 antigen and HIV-1/HIV-2 antibodies were [...] purpose. For additional information please refer to http://education.Re[employer]te [employer]rapeutics.t3n Magazin/faq/TLV582 (This link is being provided for informational/ educational purposes only.) The performance of this assay has not been clinically validated in patients less than 2 years old. Blood BLOOD SPECIMEN / Unknown 04/23/2024 8:52 AM STOCK CONTROL CLERK 04/23/2024 8:53 AM STOCK CONTROL CLERK Annabel Meeks DO SEND OUTS Final Resul t [facility] [address] [place] [address], [facility] [address] [place] [address] * (ABNORMAL) BASIC METABOLIC PANEL (04/23/2024 8:52 AM STOCK CONTROL CLERK) Pathologist [facility] GLUCOSE 100(H) 65 - 99 mg/dL [facility] Comment: Fasting reference interval For [...] BLOOD SPECIMEN / Unknown 04/23/2024 8:52 AM STOCK CONTROL CLERK 04/23/2024 8:53 AM STOCK CONTROL CLERK Annabel Aly Detert DO CHEMISTRY Final Resul t [facility] [address] [place] [address], [place] [phone] [facility] [address] [place] [address] * XR MAMMO JOSE BILAT SCREEN (08/15/2023 [...] care provider. XR MAMMO JOSE BILAT SCREEN [[id number]] CLINICAL HISTORY: This is an asymptomatic 48 [...] 7:32 AM Procedure Code(s): --- Professional --- 23662, Colonoscopy, flexible; diagnostic, including collection of specimen(s) bybrushing or washing, when performed (separateprocedure) Diagnosis Code(s): --- Professional --- Z12.11, Encounter for screening formalignant neoplasm of colon CPT copyright 2020 [employer]. All rights reserved. The codes documented in this report are preliminary and upon channel partners reviewmay be revised to meet current compliance requirements. Scope In: 10:05:26 AM Scope Withdrawal Time 0 hours 7 minutes 2 seconds Scope Out: 10:21:49 AM Sean Guzman MD PROCEDURE ORD Final Res ult * ANTI HCV (08/15/2021 8:52 AM CDT) HEPATITIS C ANTIBODY Non-React michael Non-React michael 08/15/2021 5:59 PM CDT [facility] Comment:Antibodies to HCV no t detected; does not exclude the possibility of exposure to HCV. Blood BLOOD SPECIMEN / Unknown Venipuncture / Unknown 08/15/2021 8:52 AM CDT 08/15/2021 8:56 AM CDT Annabel Meeks DO SEND OUTS Final Resul t [facility] [address] [place] [address], [place] * FOOT ROENTGENOLOGIST THIN PREP PAP SCREEN IMAGED [[id number]] (05/03/2020 9:44 AM STOCK CONTROL CLERK) Case Report Gynecologic Cytology Report Case: [id number] Authorizing Provider: Annabel Meeks DO Collected: 05/03/2020 0944 Ordering Location: [facility] Received: 05/03/2020 [facility] First Screen: Elicia Crum Specimen: FOOT ROENTGENOLOGIST ThinPrep Vial Screening, Cervical 05/12/2020 8:24 AM CDT [facility] INTERPRETATION/ RESULT NEGATIVE FOR INTRAEPITHELIAL LESION OR MALIGNANCY (NIL) (none) 05/12/2020 8:24 AM CDT [facility] at 0823 CDT SPECIMEN ADEQUACY Satisfactory for evaluation Endocervical component present 05/12/2020 8:24 AM CDT [facility] HPV REQUEST HPV and PAP 05/12/2020 8:24 AM CDT [facility] Date of LMP 04/28/20 05/12/2020 8:24 AM CDT [facility] Last Pap Date 201405/12/2020 8:24 AM CDT [facility] Last Pap Result NIL 8:24 AM CDT [facility] Abnormal Pap or [place] Bx in last 5 years No 05/12/2020 8:24 AM CDT [facility] Menstrual Status Regular Periods 05/12/2020 8:24 AM CDT [facility] [place] Bx Done Today No 05/12/2020 8:24 AM CDT [facility] [employer] [facility] Additional Information None given 05/12/2020 8:24 AM CDT [facility] [employer] [facility] Comment: [facility] - [address], [place] [address] [facility] - [address] [place] [address], [place] [address] and [facility] - [address], [place] [address] Interpreted at [facility] - [facility] [place] [address] Automated Review Successful 05/12/2020 8:24 AM CDT [facility] Comment:Specimen processed s uccessfully by automated ldr nurse device, FindMy[employer] Imaging System, [employer] [employer] ANCILLARY TESTING FOOT ROENTGENOLOGIST HPV Ordered, Please see separate report 05/12/2020 8:24 AM CDT [facility] Note The pap test is [...] and malignant lesions. 05/12/2020 8:24 AM CDT [facility] EN[facility] LAB[facility]AT[facility] Other (Cervical) Non-Blood / Unknown 05/03/2020 9:44 AM STOCK CONTROL CLERK 05/03/2020 10:24 AM STOCK CONTROL CLERK Annabel Meeks DO PATHOLOGY/CYTOLOGY Final Re sult [facility] [address] [place] [address], [place] from Last 3 Months or Most Recently Relevant to Health Maintenance Insurance Julia [facility] [place] [id number] [facility] Advance Directives * Full Code (Latest Code Status on File) Date Activated Date Inactivated Comments 03/06/2022 8:42 AM 03/06/2022 5:57 PM Question Answer Comments Code Status Discussion: Reviewed Preferences * Full Code Date Activated Date Inactivated Comments 11/08/2020 9:03 AM 11/08/2020 6:49 PM Question Answer Comments Code Status Discussion: Discussed Care Teams Ship Boss Relationship Specialty Start Date End Date [place] [address] [address] PCP - General Family Practice 11/07/16
--- NOTE | 2024-06-28 19:04 | ED_ITS ---
HPI - Wound/Laceration General Date Seen: 06/28/24 Chief Complaint: Laceration/Wound Stated Complaint: Lac R foot middle toe Time Seen by Provider: 06/28/24 18:20 Source: patient Mode of arrival: ambulatory Limitations: no limitations History of Present Illness HPI narrative: Patient is a delightful young lady who presents here after leaving idea and hitting her toe on a cart, right 3rd toe splint, and was bleeding, he will she they are unable to stop the bleeding which she presented here to the ER she thinks her tetanus is up-to-date. She is having pain she has had previous toe surgery by a housing quality standard inspector there. Place: other Patient tetanus UTD: Yes Context: accidental Associated symptoms: pain Treatments prior to arrival: bandage Related Data Home Medications ?Medication ?Instructions ?Recorded ?Confirmed norgestimate 0.18 mg/0.215mg/0.25 tab 03/18/22 mg-ethinyl estradiol 0.025 mg tablet (Jni-Xh-Bmzfoahu) sertraline 50 mg tablet mg 03/18/22 phentermine 15 mg capsule 15 mg PO DAILY 06/28/24 06/28/24 Allergies Allergy/AdvReac Type Severity Reaction Status Date / Time No Known Drug Allergies Allergy Verified 03/27/22 21:34 Review of Systems Status of ROS: Reports: 6 or more systems reviewed and unremarkable except as noted in History and below [facility] Social History Smoking Status: Never smoker Do you use any of these nicotine containing products: None Second hand tobacco smoke exposure: No How often do you have a drink containing alcohol: never AUDIT-C Alcohol total score: 0 Non-prescribed substance use: denies use Exam Narrative: Exam Narrative: On examination she split through the nail approximately 1/3 through the right 3rd toenail. And it is bleeding, she has no bruising noted, she is otherwise vascularly intact with good vascular refill and also 10 sensation. We will do an x-ray. Const: Vital Signs, click to edit/add: Vital Signs - 24 hr 06/28/24 18:35 Temperature 98.5 F Pulse Rate [Pulse Oximeter] 84 Respiratory Rate 18 Blood Pressure [Ri ght Upper Arm] 143/87 H Pulse Oximetry 98 Oxygen Delivery Me thod Room Air Course Vital Signs Vital signs: Initial Vital Signs Temperature 98.5 F 06/28/24 18:35 Temperature Source Temporal Artery Scan 06/28/24 18:35 Pulse Rate 84 06/28/24 18:35 Respiratory Rate 18 06/28/24 18:35 Blood Pressure 143/87 H 06/28/24 18:35 Blood Pressure Mean 105 06/28/24 18:35 Blood Pressure Position Supine 06/28/24 18:35 Pulse Oximetry 98 06/28/24 18:35 Oxygen Delivery Method Room Air 06/28/24 18:35 Vital Signs Temperature 98.5 F 06/28/24 18:35 Pulse Rate 84 06/28/24 18:35 Respiratory Rate 18 06/28/24 18:35 Blood Pressure 143/87 H 06/28/24 18:35 Pulse Oximetry 98 06/28/24 18:35 Oxygen Delivery Method Room Air 06/28/24 18:35 Temperature 98.5 F 06/28/24 18:35 Pulse Rate 84 06/28/24 18:35 Respiratory Rate 18 06/28/24 18:35 Blood Pressure 143/87 H 06/28/24 18:35 Pulse Oximetry 98 06/28/24 18:35 Oxygen Delivery Method Room Air 06/28/24 18:35 MDM - Wound/Laceration MDM Narrative Medical decision making narrative: Discussed with the patient, given her nail and nail plate injury I do recommend sutures here. X-ray is obtained. This did not show any acute abnormality. But her plates were noted. 1% lidocaine without epinephrine was used to good affect, for anesthesia of her toe. Wound is cleaned out with Hibiclens, I was able with 3 simple 4-0 sutures and using the cautery burn some holes within her nail in suture across the nail. Dry dressing was applied. With a little bit a Hibiclens as of her allergy to antibiotic ointment. Explained to her that there will be a bit of a nail deformity but we will less than it by doing the sutures. She was comfortable with this sutures should come out in 10 days we went over worsening condition, such as infection, and she will take the antibiotics as directed. Estimated blood loss less than 2 mL. Differential Diagnosis Differential diagnosis: Likely laceration, abscess, abrasion and avulsion of skin Imaging Data Toe x-ray: Attestation: I have reviewed the pertinent imaging results. My impression: I see no evidence of fracture, Radiologist's impression: [place] [address] Diagnostic Imaging Report Patient: Tara Renee MR#: [id number] : 1975 Acct:[id number] Loc: ED Service Date: 06/28/[address]: Ordering Physician: Ruben Peña M.D. Date of Service: 06/28/24 Procedure(s): XR 3rd toe RT Accession Number(s): [id number] cc: Annabel Meeks D.O.; Ruben Peña M.D.~ For Patients: As a result of the Cures Act, medical imaging exams and procedure reports are released immediately into your electronic medical record. You may view this report before your referring provider. If you have questions, please contact your health care provider. INDICATION: Toe Injury TECHNIQUE: Toe radiograph 3 views right COMPARISON: None FINDINGS: Bone: Previous distal 1st bunionectomy is noted. Cortical thickening and patchy sclerosis is partially visualized in the distal 5th metatarsal which may be due to remote injury or infection. There are metallic pins present in the 2nd through 4th metatarsal heads. A metallic staple is present in the 1st proximal phalanx. Evaluation of the digits on the lateral examination is moderately degraded due to overlapped digit positioning. Joint: Arthrodesis of the 2nd-4th proximal interphalangeal joints are noted with threaded metallic pins. Soft tissue: Unremarkable. No radiopaque foreign bodies are seen. IMPRESSION: 1. No acute osseous injuries or abnormalities are noted. Dictated by Oscar Voss MD @ 06/28/2024 7:30:51 PM Dictated by: Oscar Voss MD @ 06/28/2024 19:30:56 (Electronically Signed) Discharge Plan Discharge Clinical Impression: Laceration, Injury of toenail of right foot Patient Disposition: Home w/ Parent or Adult Condition: Improved Instructions: Laceration (DC) Additional Instructions: Home rest antibiotics as directed Tylenol or ibuprofen, since he can not use the bacitracin, I recommend that she use some cleaning but not to use hydrogen peroxide. Activity Level: Light activity Discharge Diet: Regular Prescriptions: No Action phentermine 15 mg capsule 15 mg PO DAILY sertraline 50 mg tablet norgestimate-ethinyl estradiol [Epk-Nl-Joxgeque] 0.18/0.215/0.25 mg-25 mcg tablet Patient Comments: TAKE 1 TABLET BY MOUTH EVERY DAY Follow Up/Referrals: Annabel Meeks DO [Primary Care Provider] - Stand Alone Forms: MyHealth Info Instructions
== END 2024-06-28 20:30 | disposition home or self-care (01) ==
PROVIDERS: Emergency Provider Family Medicine; PCP Family Medicine
DX: S91.214A Laceration without foreign body of right lesser toe(s) with damage to nail, initial encounter (principal); W22.8XXA Striking against or struck by other objects, initial encounter
CPT/HCPCS: 12001; 73660; 99283